=== PATIENT | female | born 1980 | race Caucasian/White ===

== ENCOUNTER → 2024-11-20 11:41 | Outpatient (REF) | payer OTHER, SELFPAY | LOC: HWRAD 11:41 | PROVIDERS: ATTENDING PHYSICIAN Internal Medicine; FAMILY PHYSICIAN Family Medicine | DX: K59.00 Constipation, unspecified (principal); M62.89 Other specified disorders of muscle | CPT/HCPCS: 74018 ==

== ENCOUNTER → 2025-02-01 08:33 | Outpatient (REF) | payer OTHER, SELFPAY | LOC: RAD 08:33 | PROVIDERS: ATTENDING PHYSICIAN Internal Medicine; FAMILY PHYSICIAN Family Medicine | DX: M62.89 Other specified disorders of muscle (principal) | CPT/HCPCS: 74270 ==

== ENCOUNTER 2025-02-19 06:22 | Day surgery (SDC) | payer OTHER, SELFPAY | END 2025-02-19 11:18 | disposition home or self-care (01) | LOC: GI 06:22 | PROVIDERS: ATTENDING PHYSICIAN Internal Medicine | DX: R10.13 Epigastric pain (principal); R10.2 Pelvic and perineal pain; R19.4 Change in bowel habit; K22.89 Other specified disease of esophagus; K29.60 Other gastritis without bleeding; K63.89 Other specified diseases of intestine; K29.50 Unspecified chronic gastritis without bleeding; K31.89 Other diseases of stomach and duodenum | CPT/HCPCS: 45380; 88305; 88342 ==